=== PATIENT | female | born 1990 | race Caucasian/White ===

== ENCOUNTER 2016-11-26 10:41 | Emergency (ER) | payer OTHER ==
[2016-11-26] MEDS ORDERED: ONDANSETRON 4 MG TAB.RAPDIS PO ONE (10:46)
--- NOTE | 2016-11-26 10:46 | ER Document Report ---
ED Medical Screen (RME) - General Chief Complaint: Abdominal Pain Stated Complaint: ABDOMINAL PAIN Time seen by provider: 10:44 Mode of Arrival: Ambulatory Information source: Patient Notes: 26-year-old female presents to ED for pain on the right side upper and lower for a month but getting worse. She states she's recently went to [facility] ER and they told her she had gallstones. Nausea and vomiting 3 today. Denies fever. Last menstrual period September 2016 states she has PCO S and has irregular periods. I have greeted and performed a rapid initial assessment of this patient. A comprehensive ED assessment and evaluation of the patient, analysis of test results and completion of medical decision making process will be conducted by an additional ED providers. - Related Data Allergies/Adverse Reactions: ibuprofen [From Motrin] Allergy (Intermediate, Verified 05/19/13 18:48) Facial swelling Past Medical History - Immunizations Hx Diphtheria, Pertussis, Tetanus Vaccination: Yes
[2016-11-26 11:18] LABS: ABSOLUTE BASOPHILS # (AUTO) 0.1 10^3/uL (0.0-0.2); ABSOLUTE EOSINOPHILS # (AUTO) 0.3 10^3/uL (0.0-0.6); ABSOLUTE LYMPHOCYTES (AUTO) 2.1 10^3/uL (0.5-4.7); ABSOLUTE MONOCYTES (AUTO) 0.5 10^3/uL (0.1-1.4); ABSOLUTE NEUT (AUTO) 6.6 10^3/uL (1.7-8.2); BASOPHILS % (AUTO) 0.6 % (0-2); EOSINOPHILS % (AUTO) 3.4 % (0-6); HEMATOCRIT 42.5 % (36.0-47.0); HEMOGLOBIN 13.9 g/dL (12.0-15.5); HGB HCT DIFFERENCE -0.8; LYMPHOCYTES % (AUTO) 21.6 % (13-45); MEAN CORPUSCULAR HEMOGLOBIN 26.4 pg (27.0-33.4); MEAN CORPUSCULAR HGB CONC 32.6 g/dL (32.0-36.0); MEAN CORPUSCULAR VOLUME 81 fl (80-97); MONOCYTES % (AUTO) 4.9 % (3-13); RED BLOOD COUNT 5.26 10^6/uL (3.72-5.28); RED CELL DISTRIBUTION WIDTH 12.8 % (11.5-14.0); SEGMENTED NEUTROPHILS % (AUTO) 69.5 % (42-78); WHITE BLOOD COUNT 9.5 10^3/uL (4.0-10.5)
[2016-11-26 11:24] LABS: APPEARANCE,URINE SLIGHTLY-CLOUDY; BILIRUBIN,URINE NEGATIVE (NEGATIVE); GLUCOSE, URINE NEGATIVE (NEGATIVE); KETONES,URINE NEGATIVE (NEGATIVE); LEUKOCYTE ESTERASE,URINE NEGATIVE (NEGATIVE); NITRITE,URINE NEGATIVE (NEGATIVE); PROTEIN,URINE NEGATIVE (NEGATIVE); URINE SPECIFIC GRAVITY 1.016; UROBILINOGEN,URINE NEGATIVE mg/dL (<2.0)
[2016-11-26 11:45] LABS: ALANINE AMINOTRANSFERASE 66 U/L (9-52); ALBUMIN 3.8 g/dL (3.5-5.0); ALKALINE PHOSPHATASE 102 U/L (38-126); ANION GAP 10 (5-19); ASPARTATE AMINO TRANSFERASE 41 U/L (14-36); BILIRUBIN,TOTAL 0.8 mg/dL (0.2-1.3); BLOOD UREA NITROGEN 9 mg/dL (7-20); CALCIUM 9.4 mg/dL (8.4-10.2); CARBON DIOXIDE 29 mmol/L (22-30); CHLORIDE 102 mmol/L (98-107); CREATININE RESULT 0.62 mg/dL (0.52-1.25); GLUCOSE 119 mg/dL (75-110); LIPASE 65.3 U/L (23-300); POTASSIUM 4.2 mmol/L (3.6-5.0); SODIUM 141.2 mmol/L (137-145); TOTAL PROTEIN 7.4 g/dL (6.3-8.2)
--- NOTE | 2016-11-26 14:10 | ER Document Report ---
ED General - General Chief Complaint: Abdominal Pain Stated Complaint: ABDOMINAL PAIN Mode of Arrival: Ambulatory Information source: Patient Notes: Patient presents emergency department with complaints of right upper quadrant abdominal pain for the past month but pain has increased since November 09. Patient reports she was evaluated at [facility] emergency department on Friday and told she had gallstones. The pain is even worse so she came here. She reports history of Crohn's. She reports history of lower intestinal resection in 2012 due to the Crohn's. She reports vomiting and diarrhea twice today. She denies pain with void but reports urgency. She denies fever. Patient reports they've scheduled her for a follow-up visit with GI next week but she canceled it because she has exams. Patient declines pain medication at this time. Patient reports she's been eating soup and crackers and tolerated toast since Friday TRAVEL OUTSIDE OF THE [place] IN LAST 30 DAYS: No - HPI Onset: Other - one month Onset/Duration: Persistent Quality of pain: Achy, Sharp Severity: Severe Pain Level: 3 - Clines pain med. 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 Lives with: Family Family History: Reviewed & Not Pertinent Patient has suicidal ideation: No Patient has homicidal ideation: No Endocrine Medical History: Reports: Hx Diabetes Mellitus Type 2 - gestational, Other - PCOS Renal/ Medical History: Denies: Hx Peritoneal Dialysis GI Medical History: Reports: Hx Crohn's Disease Past Surgical History: Reports: Hx Abdominal Surgery - Immunizations Hx Diphtheria, Pertussis, Tetanus Vaccination: Yes Review of Systems - Review of Systems Notes: Review HPI for review of systems., All other systems negative Physical Exam - Vital signs Vitals: Temp Pulse Resp BP Pulse Ox 98.3 F 82 16 133/73 H 94 11/26/16 10:45 11/26/16 10:45 11/26/16 10:45 11/26/16 10:45 11/26/16 10:45 - Notes Notes: PHYSICAL EXAMINATION: GENERAL: In no acute distress nontoxic looking HEAD: Atraumatic, normocephalic. EYES: Pupils equal round , extraocular movements intact, sclera anicteric, conjunctiva are normal. ENT: nares patent, Moist mucous membranes. NECK: Normal range of motion, supple without lymphadenopathy LUNGS: CTAB and equal. No wheezes rales or rhonchi. HEART: Regular rate and rhythm without murmurs ABDOMEN: Soft, RUQ tenderness. No guarding, no rebound EXTREMITIES: Normal range of motion, no pitting edema. NEUROLOGICAL: Cranial nerves grossly intact. Normal sensory/motor . PSYCH: Normal mood, normal affect. SKIN: Warm, Dry, normal turgor, no rashes or lesions noted Course - Re-evaluation Re-evalutation: 11/26/16 Labs unremarkable ultrasound shows gallstones patient still declines pain medication. No further vomiting or diarrhea since arrival. Patient reports she did call the surgeon back and has a follow-up appointment at [facility] on December 06. Patient was instructed on low-fat diet. She is nontoxic looking. She declines pain and nausea medicine. The patient presents with abdominal pain without signs of peritonitis or other life threatening or serious etiology. The patient appears stable for discharge and has been instructed to return immediately if the symptoms worsen in any way or in 8-12 hours if not improved for reevaluation. The patient has been instructed to return if the symptoms worsen or change in any way. - Vital Signs Vital signs: Temp Pulse Resp BP Pulse Ox 98.0 F 76 16 119/67 95 11/26/16 16:04 11/26/16 16:04 11/26/16 10:45 11/26/16 16:04 11/26/16 16:04 - Laboratory Result Diagrams: 11/26/16 10:50 11/26/16 10:50 Laboratory results interpreted by me: 11/26/16 11/26/16 10:50 10:50 MCH 26.4 L Glucose 119 H AST 41 H ALT 66 H - Diagnostic Test Radiology reviewed: Image reviewed, Reports reviewed - There are gallstones. Gallbladder wall measures 3 mm which is at the upper limits of normal.IMPRESSION: No acute findings Discharge - Discharge Clinical Impression: elevated blood pressure Abdominal pain Qualifiers: Abdominal location: right upper quadrant Qualified Code(s): R10.11 - Right upper quadrant pain Gallstones without obstruction of gallbladder Qualifiers: Cholelithiasis location: gallbladder Cholecystitis presence: without cholecystitis Qualified Code(s): K80.20 - Calculus of gallbladder without cholecystitis without obstruction Condition: Stable Disposition: HOME, SELF-CARE Instructions: Abdominal Pain ([facility]), Gallbladder Disease ([facility]), Low-Fat Diet ( [facility]) Additional Instructions: *You have been evaluated for abdominal pain *The ultrasound shows that you do have gallstones *Monitor your blood pressure. Your blood pressure was elevated today. This may be because you were anxious, in pain or because you need medication. It is important to follow up with your primary care provider for full evaluation. *Take medication as prescribed *Follow up with a surgeon within one week to discuss removal of your gallbladder *Return to ED for worsening condition, changes, needs *Return to ED if not better in 24 hours Forms: Elevated Blood Pressure, Return to School, Return to Work
[2016-11-26 16:06] VITALS: BP 119/67
== END 2016-11-26 16:06 | disposition home or self-care (01) ==
LOC: ER 10:41
DX: K80.20 Calculus of gallbladder without cholecystitis without obstruction (principal); E28.2 Polycystic ovarian syndrome; R03.0 Elevated blood-pressure reading, without diagnosis of hypertension; R10.11 Right upper quadrant pain; R19.7 Diarrhea, unspecified; R11.10 Vomiting, unspecified; R30.0 Dysuria; Z88.6 Allergy status to analgesic agent; Z90.49 Acquired absence of other specified parts of digestive tract; Z87.19 Personal history of other diseases of the digestive system
CPT/HCPCS: 99284; 36415; 83690; 84703; 85025; 80053; 81001; 76705; S0119